=== PATIENT | female | born 1965 | race Two or more races ===

== ENCOUNTER 2016-04-17 18:46 | Emergency (ER) | payer OTHER ==
[~2016-04-17] VITALS: Ht 170.2 cm; Wt 65.0 kg
[2016-04-17 19:16] VITALS: Ht 170.2 cm; Wt 65.0 kg
[2016-04-17] MEDS ORDERED: ONDANSETRON 4 MG INJ IV STA (21:05)
[2016-04-17] MEDS ORDERED: SOD CHLORIDE 0.9% 1,000 ML IV STA (21:05)
[2016-04-17] MEDS ORDERED: FAMOTIDINE 20 MG INJ IV STA (21:05)
[2016-04-17] MEDS ORDERED: KETOROLAC 30 MG INJ IV STA (21:05)
--- NOTE | 2016-04-17 21:24 | ERD ---
ER Documentation Chief Complaint Date/Time DATE: 04/17/16 TIME: 21:22 Chief Complaint Flank pain bilateral, Feels like throat is burning HPI This is a 50-year-old female presents to the ER with multiple complaints. Patient has been complaining of back pain for the last month. Patient states that yesterday she began to feel short of breath secondary to back pain pain. Patient however denies any cough or cold symptoms. Patient also complained of a burning sensation that is in her throat. She denies any epigastric pain. She denies any other abdominal pain. Patient has been complaining of frequent urination however denies any hematuria or any pain with urination. She denies any fevers or chills. She denies any trauma to the back. Patient denies any urine or bowel incontinence. She denies any recent travel, she denies any leg swelling or redness. Patient denies any chest pain. Patient also complained of nausea vomiting and diarrhea. Vomiting is nonbilious nonbloody. Diarrhea is nonbloody. She has not traveled anywhere. ROS All systems reviewed and are negative except as per history of present illness. Medications Home Meds Active Scripts Ondansetron Hcl* (Zofran*) 4 Mg Tablet, 4 MG PO Q6H for NAUSEA AND/OR VOMITING, #30 TAB Prov:CHRISTIANNE BENTLEY 04/17/16 Ibuprofen* (Motrin*) 600 Mg Tab, 600 MG PO Q6, #30 TAB Prov:TRICE BENTLEYNA C 04/17/16 Hydrocodone/Acetaminophen ([place] 5-325 Tablet) 1 Each Tablet, 1 TAB PO Q6H Y for PAIN, #20 TAB Prov:CHRISTIANNE BENTLEY 04/17/16 Allergies Allergies: Coded Allergies: No Known Allergy (Unverified , 04/17/16) Physical Exam Vitals Vital Signs Date Time Temp Pulse Resp B/P Pulse Ox O2 Delivery O2 Flow Rate FiO2 04/17/16 19:16 98.1 101 20 183/101 99 Physical Exam GENERAL: The patient is well developed and appropriate for usual state of health , in no apparent distress. HEENT: Atraumatic. CHEST: Clear to auscultation bilaterally. There are no rales, wheezes or rhonchi. HEART: Regular rate and rhythm. No murmurs, clicks, rubs or gallops. ABDOMEN: Soft, nontender and nondistended. Good bowel sounds. No rebound or guarding. No gross peritonitis. No gross organomegaly or masses. No Ribeiro sign or McBurney point tenderness. BACK: No midline or flank tenderness. EXTREMITIES:Full range of motion. Grossly neurovascularly intact. NEURO: Alert and oriented. Result Diagram: 04/17/16212904/17/162129 Results 24 hrs Laboratory Tests Test 04/17/16 21:15 04/17/16 21:30 Urine Bilirubin NEGATIVE Urine Clarity CLEAR Urine Color LT. YELLOW Urine Glucose NEGATIVE% Urine Hemoglobin NEGATIVE Urine Ketones 15 Urine Leukocyte Esterase NEGATIVE Urine Nitrite NEGATIVE Urine Specific [place] <=1.005 Urine Total Protein NEGATIVE Urine Urobilinogen 0.2 E.U./dL Urine pH 6.0 Alanine Aminotransferase (ALT/SGPT) 23IU/L Albumin 4.8g/dl Albumin/Globulin Ratio 1.33 Alkaline Phosphatase 128IU/L Anion Gap 24 Aspartate Amino Transf (AST/SGOT) 19IU/L Basophils # 0.010^3/ul Basophils % 0.3% Blood Urea Nitrogen 6mg/dl Calcium Level 10.8mg/dl Carbon Dioxide Level 19mmol/L Chloride Level 101mmol/L Creatinine 0.58mg/dl Direct Bilirubin 0.00mg/dl Eosinophils # 0.010^3/ul Eosinophils % 0.3% Globulin 3.60g/dl Glucose Level 107mg/dl Hematocrit 38.0% Hemoglobin 13.3g/dl Indirect Bilirubin 0.4mg/dl Lipase 49U/L Lymphocytes # 5.510^3/ul Lymphocytes % 42.6% Mean Corpuscular Hemoglobin 28.7pg Mean Corpuscular Hemoglobin Concent 35.0g/dl Mean Corpuscular Volume 82.1fl Mean Platelet Volume 9.8fl Monocytes # 0.910^3/ul Monocytes % 7.3% Neutrophils # 6.310^3/ul Neutrophils % 49.0% Nucleated Red Blood Cells # 0.010^3/ul Nucleated Red Blood Cells % 0.0/100WBC Platelet Count 90772^3/UL Potassium Level 3.6mmol/L Red Blood Count 4.6310^6/ul Red Cell Distribution Width 12.5% Sodium Level 140mmol/L Total Bilirubin 0.4mg/dl Total Protein 8.4g/dl White Blood Count 12.810^3/ul Current Medications Medications (Trade) Dose Ordered Sig/Madelyn Route PRN Reason Start Time Stop Time Status Last Admin Dose Admin Sodium Chloride (NS) 1,000 ml @ 1,000 mls/hr Q1H STAT IV 04/17/16 21:05 04/17/16 22:04 DC Ondansetron HCl (Zofran Inj) 4 mg ONCE STAT IV 04/17/16 21:05 04/17/16 21:07 DC Famotidine (Pepcid Iv) 20 mg ONCE STAT IV 04/17/16 21:05 04/17/16 21:07 DC Ketorolac Tromethamine (Toradol) 30 mg ONCE STAT IV 04/17/16 21:05 04/17/16 21:07 DC Acetaminophen/ Hydrocodone Bitart ([place] (5/325)) 1 tab ONCE ONCE PO 04/17/16 23:00 04/17/16 23:01 DC 04/17/16 22:43 Ibuprofen (Motrin) 600 mg ONCE ONCE PO 04/17/16 23:00 04/17/16 23:01 DC 04/17/16 22:42 Procedures/MDM Differential Diagnosis: GERD, gastritis, peptic ulcer disease, pancreatitis, cholecystitis, choledocholithiasis, biliary colic, cholangitis, [id number] , ACS/FL, Pnuemonia, kidney stones. Patient does have kidney stones. Patient however does not have any fever or chills and she is well-appearing. Suspicion for septic obstructive kidney stone is low. EKG was taken and read by Dr. Sommers 96bpm no ST elevation no t wave inversion. Patient will be sent home with [place], ibuprofen, Zofran. She is to follow-up with her primary care doctor and see a urologist as soon as possible. I shared my medical decision making with patient's and her family. Patient verbalizes understanding and agrees with plan. Patient needs to return to the ER sooner if symptoms worsen. Blood pressure was elevated during intake, after taking pain medication her blood pressure was still very elevated. Patient states she did not take her blood pressure medication today. Patient will be given Cardene in the ER to reduce blood pressure. Departure Diagnosis: Primary Impression: Kidney stone Condition: Stable CHRISTIANNE BENTLEY Apr 17, 2016 21:24
--- NOTE | 2016-04-17 21:44 | RADRPT ---
PROCEDURE: XR Chest. CLINICAL INDICATION: Shortness of breath TECHNIQUE: A single portable view of the chest was obtained. COMPARISON: None FINDINGS: The cardiomediastinal silhouette is within normal limits. The lungs and pleural spaces are clear. The soft tissues and osseous structures are unremarkable. IMPRESSION: No acute cardiopulmonary disease. RPTAT: HPNM Physician Hari Date Time Electronically viewed and signed by Chet Schofield Physician on 04/17/2016 21:44 /
[2016-04-17 21:46] LABS: ADD SCAN DIFF NO
[2016-04-17 21:57] LABS: ADD UMIC NO; URINE BILIRUBIN (Dip) NEGATIVE (NEGATIVE); URINE BLOOD (Dip) NEGATIVE (NEGATIVE); URINE COLOR LT. YELLOW (YELLOW); URINE GLUCOSE (Dip) NEGATIVE (NEGATIVE); URINE KETONES (Dip) 15 (NEGATIVE); URINE LEUKOCYTE ESTERASE (Dip) NEGATIVE (NEGATIVE); URINE NITRITE (Dip) NEGATIVE (NEGATIVE); URINE TOTAL PROTEIN (Dip) NEGATIVE (NEGATIVE); URINE UROBILINOGEN (Dip) 0.2 E.U./dL (0.1-1.0)
[2016-04-17 21:59] LABS: ALBUMIN 4.8 g/dl (3.3-4.9)
[2016-04-17 22:00] LABS: ABNORMAL IP MESSAGE 1; BASOPHILS % 0.3 % (0.0-2.0); EOSINOPHILS % 0.3 % (0.0-7.0); HEMOGLOBIN 13.3 g/dl (12.0-16.0); LYMPHOCYTES # 5.5 10^3/ul (0.8-2.9); LYMPHOCYTES % 42.6 % (15.0-51.0); MEAN CORPUSCULAR HEMOGLOBIN 28.7 pg (29.0-33.0); MEAN CORPUSCULAR VOLUME 82.1 fl (82.0-101.0); MEAN PLATELET VOLUME 9.8 fl (7.4-10.4); MONOCYTE # 0.9 10^3/ul (0.3-0.9); MONOCYTES % 7.3 % (0.0-11.0); NEUTROPHIL # 6.3 10^3/ul (1.6-7.5); PLATELET COUNT 449 10^3/UL (140-415); POTASSIUM 3.6 mmol/L (3.5-5.1); RED BLOOD COUNT 4.63 10^6/ul (4.20-5.40); RED CELL DISTRIBUTION WIDTH 12.5 % (11.5-14.5); WHITE BLOOD COUNT 12.8 10^3/ul (4.8-10.8)
[2016-04-17 22:02] LABS: BILIRUBIN,INDIRECT 0.4 mg/dl (0-1.1); BILIRUBIN,TOTAL 0.4 mg/dl (0.2-1.3); CREATININE 0.58 mg/dl (0.44-1.00)
[2016-04-17 22:03] LABS: ALBUMIN/GLOBULIN RATIO 1.33; CALCIUM 10.8 mg/dl (8.4-10.2); TOTAL PROTEIN 8.4 g/dl (6.1-8.1)
--- NOTE | 2016-04-17 22:20 | RADRPT ---
PROCEDURE: CT ABDOMEN/PELVIS WITHOUT CONTRAST CLINICAL INDICATION: 50-year-old female with abdominal and back pain. TECHNIQUE: The study was performed utilizing a [employer] VCT 64-slice CT scanner. Direct axia l sections were obtained through the abdomen and pelvis without the use of intravenous contrast mate rial. Sagittal and coronal reformations were obtained. Automated exposure control and iterative belén nstruction techniques were utilized for this examination. The [facility] CTD/vol = 9.0 mGy; Total Exam DLP = 448.1 mGy-cm. COMPARISON: None. FINDINGS: The lung bases are unremarkable. There is no evidence for significant pleural effusion. The liver has a normal size and contour without focal areas of abnormal density. No intrahepatic nor extrahepa tic biliary ductal dilatation is seen. The gallbladder demonstrates no wall thickening nor perichole cystic fluid. No biliary stones are evident. The pancreas is without areas of abnormal attenuation. The spleen is identified and has a normal size without abnormal density. The adrenal glands are unr emarkable. The right kidney is without abnormal density, calculi or obstruction. There is a small p unctate mid-left renal 2 x 1 mm nonobstructing calculus. There is no evidence for obstructive uropa thy. The urinary bladder contains minimal urine. There is no evidence for bowel obstruction. The a ppendix is visualized and is without abnormal thickening or surrounding inflammatory reaction. The u terus is retroflexed. There is no significant free fluid. Phleboliths are seen within the pelvis. The aortoiliac vessels are without aneurysmal dilatation. The osseous structures are intact. IMPRESSION: 1. Punctate nonobstructing left mid renal calculus. 2. No CT evidence for appendicitis. .Corbin Longo MD, MD Date Time Electronically viewed and signed by .Corbin Longo MD, MD on 04/17/2016 22:20 .M/
[2016-04-17] MEDS ORDERED: HYDR-906 PO (22:30)
[2016-04-17] MEDS ORDERED: ONDA4TAB8 PO (22:30)
[2016-04-17] MEDS ORDERED: IBUP-1542 PO (22:30)
[2016-04-17] MEDS ORDERED: HYDROCODONE/APAP (5/325) TAB PO ONE (23:00)
[2016-04-17] MEDS ORDERED: IBUPROFEN 600 MG TAB PO ONE (23:00)
[2016-04-17 23:21] VITALS: PULSE 75; RESP 22; TEMP 97.9
[2016-04-17] MEDS ORDERED: NICARDipine HCL 30 MG CAPSULE PO ONE (23:30)
[2016-04-18 00:25] VITALS: BP 137/86
== END 2016-04-18 00:32 | disposition home or self-care (01) ==
LOC: FTE 18:46
DX: N20.0 Calculus of kidney (principal); R06.02 Shortness of breath
CPT/HCPCS: 71010; 74176; 80053; 81003; 83690; 85025; 93005; 99285; J7030; J1885; J2405

== ENCOUNTER 2017-12-13 18:17 | Inpatient (IN) | END 2017-12-20 13:17 | disposition still patient (30) | DRG 326 ==